=== PATIENT | female | born 1940 | race Caucasian/White ===

== ENCOUNTER 2017-12-12 11:14 | Emergency (ER) | payer BC, MEDICARE ==
[~2017-12-12] VITALS: Ht 160 cm; Wt 90.0 kg
[~2017-12-12 11:14] MED LIST: ASCO500C PO; CALCTAB80 PO; CENTTAB9 PO; COEN100T PO; FISH1000 PO; GARL350T OR; ROSU40 PO; SYNT25TA PO; VITA500015 OR; ZETI10TA5 PO
[2017-12-12 11:20] VITALS: BP 166/72; PULSE 99; RESP 18; TEMP 98; O2SAT 99
--- NOTE | 2017-12-12 11:44 | PD ---
HPI Chief Complaint: Fever Time Seen by Provider: 11:41 Travel History International Travel<30 days: No Contact w/Intl Traveler<30days: No Traveled to known affect area: No History of Present Illness HPI Patient presents with marine equipment sales engineer. Patient with severe dementia. Sill Worker reports a fever this morning with a single episode of vomiting. T-max of 102. On arrival patient is afebrile. Sill Worker reports no Motrin or Tylenol were given. Sill Worker has no past medical history or medications for this patient. Onset upon awakening. Per the marine equipment sales engineer patient is at baseline. Family contacted to relay past medical history of atrial fibrillation hyperlipidemia hypertension hypothyroid and postmenopausal. PFSH Past Medical History Atrial Fibrillation: Yes (INTERMITTENT) Cardiovascular Problems: Yes High Cholesterol: Yes Diminished Hearing: No Hypertension: Yes Neurologic: No Respiratory: No Thyroid Disease: Yes ?: Not Menopausal: Yes Past Surgical History Appendectomy: Yes Gynecologic Surgery: Yes Hysterectomy: Yes Tonsillectomy: Yes Social History Alcohol Use: Yes (OCC) Tobacco Use: No Substance Use: No Allergies-Medications (Allergen,Severity, Reaction): Coded Allergies: penicillin G (Unverified Allergy, Severe, 12/12/17) Reported Meds & Prescriptions Reported Meds & Active Scripts Active Cipro (Ciprofloxacin HCl) 500 Mg Tab 500 Mg PO BID 5 Days Reported Aspirin 81 Mg Chew 81 Mg CHEW DAILY Trospium ER 60 Mg Cap 60 Mg PO DAILY Ezetimibe 10 Mg Tab 10 Mg PO DAILY Crestor (Rosuvastatin Calcium) 40 Mg Tab 40 Mg PO DAILY Citalopram (Citalopram Hydrobromide) 20 Mg Tab 20 Mg PO DAILY Synthroid (Levothyroxine Sodium) 50 Mcg Tab 50 Mcg PO DAILY Review of Systems ROS Limitations: Poor Historian, Other: (Severe dementia) General / Constitutional: Positive: Fever Gastrointestinal: Positive: Vomiting Physical Exam Narrative GENERAL: Well-nourished, well-developed patient. Severely demented SKIN: Focused skin assessment warm/dry. HEAD: Normocephalic. EYES: No scleral icterus. No injection or drainage. NECK: Supple, trachea midline. No JVD or lymphadenopathy. CARDIOVASCULAR: Regular rate and rhythm without murmurs, gallops, or rubs. RESPIRATORY: Breath sounds equal bilaterally. No accessory muscle use. GASTROINTESTINAL: Abdomen soft, questionable tender weakness of the lower abdomen, nondistended. MUSCULOSKELETAL: No cyanosis, or edema. BACK: Nontender without obvious deformity. No CVA tenderness. Data Data Last Documented VS Vital Signs Date Time Temp Pulse Resp B/P (MAP) Pulse Ox O2 Delivery O2 Flow Rate FiO2 12/12/17 14:34 98.2 80 16 119/68 (85) 96 Room Air Orders Orders Chest, Single Ap (12/12/17 ) Urinalysis - C+S If Indicated (12/12/17 11:41) Complete Blood Count With Diff (12/12/17 11:41) Comprehensive Metabolic Panel (12/12/17 11:41) Sodium Chlorid 0.9% 500 Ml Inj (Ns 500 M (12/12/17 12:15) Ondansetron Inj (Zofran Inj) (12/12/17 12:15) Ondansetron Liq (Zofran Liq) (12/12/17 12:45) Ibuprofen Liq (Motrin Liq) (12/12/17 12:45) Urine Culture (12/12/17 12:10) Ciprofloxacin 400 Mg Premix (Cipro 400 M (12/12/17 13:30) Labs Laboratory Tests Test 12/12/17 11:50 12/12/17 12:10 White Blood Count 9.4 TH/MM3 Red Blood Count 4.73 MIL/MM3 Hemoglobin 13.9 GM/DL Hematocrit 42.5 % Mean Corpuscular Volume 89.8 FL Mean Corpuscular Hemoglobin 29.5 PG Mean Corpuscular Hemoglobin Concent 32.8 % Red Cell Distribution Width 13.2 % Platelet Count 244 TH/MM3 Mean Platelet Volume 11.3 FL Neutrophils (%) (Auto) 81.5 % Lymphocytes (%) (Auto) 12.4 % Monocytes (%) (Auto) 4.0 % Eosinophils (%) (Auto) 0.0 % Basophils (%) (Auto) 2.1 % Neutrophils # (Auto) 7.6 TH/MM3 Lymphocytes # (Auto) 1.2 TH/MM3 Monocytes # (Auto) 0.4 TH/MM3 Eosinophils # (Auto) 0.0 TH/MM3 Basophils # (Auto) 0.2 TH/MM3 CBC Comment DIFF FINAL Differential Comment Blood Urea Nitrogen 18 MG/DL Creatinine 1.20 MG/DL Random Glucose 167 MG/DL Total Protein 7.4 GM/DL Albumin 3.4 GM/DL Calcium Level 9.0 MG/DL Alkaline Phosphatase 68 U/L Aspartate Amino Transf (AST/SGOT) 29 U/L Alanine Aminotransferase (ALT/SGPT) 26 U/L Total Bilirubin 1.0 MG/DL Sodium Level 139 MEQ/L Potassium Level 4.3 MEQ/L Chloride Level 107 MEQ/L Carbon Dioxide Level 22.6 MEQ/L Anion Gap 9 MEQ/L Estimat Glomerular Filtration Rate 44 ML/MIN Urine Collection Type CATH Urine Color YELLOW Urine Turbidity CLEAR Urine pH 5.5 Urine Specific [place] GREATER/EQUAL 1.030 Urine Protein 30 mg/dL Urine Glucose (UA) NEG mg/dL Urine Ketones 15 mg/dL Urine Occult Blood SMALL Urine Nitrite POS Urine Bilirubin NEG Urine Urobilinogen 0.2 MG/DL Urine Leukocyte Esterase MOD Urine WBC 50-99 /hpf Urine WBC Clumps MANY Urine Squamous Epithelial Cells 0-3 /hpf Urine Bacteria MANY /hpf Urine Hyaline Casts 50-100 /lpf Microscopic Urinalysis Comment CULTURE INDICATED MDM Medical Decision Making Medical Screen Exam Complete: Yes Emergency Medical Condition: Yes Differential Diagnosis Fever, UTI, pneumonia, sepsis, electrolyte abnormality, nausea vomiting Narrative Course Last 72 hours Impressions Chest X-Ray 12/12/17 0000 Signed Impressions: Service Date/Time: Tuesday, December 12, 2017 11:48 - CONCLUSION: Underinflation of atelectasis at the bases. Otherwise, no acute finding is identified. Joe Carlson MD Assessment plan discussed with marine equipment sales engineer at bedside. Patient resting comfortably without any episodes of vomiting. Diagnosis Primary Impression: UTI (urinary tract infection) Qualified Codes: N39.0 - Urinary tract infection, site not specified; R31.9 - Hematuria, unspecified Additional Impressions: Vomiting Qualified Codes: R11.10 - Vomiting, unspecified Fever Qualified Codes: R50.81 - Fever presenting with conditions classified elsewhere Patient Instructions: General Instructions Additional Instructions: Motrin or Tylenol for fever. Zofran as needed for vomiting. Antibiotic for UTI. Encourage fluids. Consider cranberry supplement. Okay to give all regular meds when she gets home. Follow-up with PCP. Return to the emergency room with any onset of new symptoms. Med/Other Pt SpecificInfo: Prescription(s) given Scripts Ondansetron (Zofran) 4 Mg Tab 4 MG PO Q8HR Y for NAUSEA OR VOMITING, #10 TAB 0 Refills Prov: Rod Baptiste MD 12/12/17 Ciprofloxacin (Cipro) 500 Mg Tab 500 MG PO BID for Infection for 5 Days, #10 TAB 0 Refills Prov: Rod Baptiste MD 12/12/17 Disposition: 01 DISCHARGE HOME Condition: Good Rod Baptiste MD December 12, 2017 11:44
[2017-12-12] MEDS ORDERED: LEVO.05 PO (11:53)
[2017-12-12] MEDS ORDERED: TROS60CA2 PO (11:53)
[2017-12-12] MEDS ORDERED: EZET1TAB8 PO (11:53)
[2017-12-12] MEDS ORDERED: ROSU40 PO (11:53)
[2017-12-12] MEDS ORDERED: CITA20TA4 PO (11:53)
[2017-12-12] MEDS ORDERED: ASPI-516 CHEW (11:53)
[2017-12-12 11:55] VITALS: TEMP 98.9
--- NOTE | 2017-12-12 12:12 | RADRPT ---
EXAM DATE/TIME: 12/12/2017 11:48 [facility] COMPARISON: No previous studies available for comparison. INDICATIONS : Fever and vomiting today MEDICAL HISTORY : None. SURGICAL HISTORY : None. ENCOUNTER: Initial ACUITY: 1 day PAIN SCORE: Non-responsive. LOCATION: Bilateral chest FINDINGS: Portable AP view of the chest demonstrates a normal-sized cardiac silhouette. Lungs are underinflated and EKG lines overlie the patient. There is mild atelectasis at the lung bases. No pneumothorax or c onsolidation is seen. No definite effusion is visualized. Bones demonstrate no acute abnormality. CONCLUSION: Underinflation of atelectasis at the bases. Otherwise, no acute finding is identified. Joe Carlson MD on December 12, 2017 at 12:09 Board Certified Radiologist. This report was verified electronically.
[2017-12-12] MEDS ORDERED: SODIUM CHLORID 0.9% 500 ML INJ 500 ML IV ONE (12:15)
[2017-12-12] MEDS ORDERED: ONDANSETRON HCL 4 MG/2 ML VIAL IV PUSH ONE (12:15)
[2017-12-12 12:23] LABS: AUTOMATED NEUTROPHIL # 7.6 TH/MM3 (1.8-7.7); BASOPHIL # 0.2 TH/MM3 (0-0.2); BASOPHIL % 2.1 % (0.0-2.0); HEMATOCRIT 42.5 % (35.0-46.0); HEMOGLOBIN 13.9 GM/DL (11.6-15.3); LYMPH % 12.4 % (9.0-44.0); LYMPHOCYTE # 1.2 TH/MM3 (1.0-4.8); MEAN CELL VOLUME 89.8 FL (80.0-100.0); MEAN CORPUSCULAR HEMOGLOBIN 29.5 PG (27.0-34.0); MEAN CORPUSCULAR HGB CONC 32.8 % (32.0-36.0); MEAN PLATELET VOLUME 11.3 FL (7.0-11.0); MONOCYTE # 0.4 TH/MM3 (0-0.9); NEUT % 81.5 % (16.0-70.0); PLATELET COUNT 244 TH/MM3 (150-450); RED BLOOD COUNT 4.73 MIL/MM3 (4.00-5.30); RED CELL DISTRIBUTION WIDTH 13.2 % (11.6-17.2); WHITE BLOOD COUNT 9.4 TH/MM3 (4.0-11.0)
[2017-12-12 12:24] LABS: BLOOD, URINE SMALL (NEG); GLUCOSE,URINE NEG (NEG); KETONE, URINE 15 mg/dL (NEG); NITRITE,URINE POS (NEG); PH, URINE 5.5 (5.0-8.5); URINE COLOR YELLOW (YELLW/STRAW); URINE LEUKOCYTE ESTERASE MOD (NEG)
[2017-12-12 12:25] LABS: CHLORIDE 107 MEQ/L (98-107); SODIUM (NA) 139 MEQ/L (136-145)
[2017-12-12 12:30] LABS: ALBUMIN 3.4 GM/DL (3.4-5.0); BICARBONATE 22.6 MEQ/L (21.0-32.0); BLOOD UREA NITROGEN 18 MG/DL (7-18); GLUCOSE,RANDOM 167 MG/DL (74-106)
[2017-12-12 12:33] LABS: ALT (GPT) 26 U/L (10-53); AST (GOT) 29 U/L (15-37); GLOMERULAR FILTRATION RATE 44 ML/MIN (>89)
[2017-12-12 12:34] LABS: BILIRUBIN, URINE NEG (NEG)
[2017-12-12 12:34] LABS: TOTAL PROTEIN 7.4 GM/DL (6.4-8.2)
[2017-12-12 12:36] LABS: HYALINE CAST, URINE 50-100 /lpf (RARE); WHITE BLOOD CELL CLUMPS MANY
[2017-12-12 12:36] LABS: ALKALINE PHOSPHATASE 68 U/L (45-117)
[2017-12-12 12:37] LABS: BACTERIA, URINE MANY /hpf; SQUAMOUS EPITHELIAL CELL URINE 0-3 /hpf (0-5)
[2017-12-12] MEDS ORDERED: ONDANSETRON HCL 4 MG/5 ML UDC PO ONE (12:45)
[2017-12-12] MEDS ORDERED: IBUPROFEN SUSP 100 MG/5 ML UDC PO ONE (12:45)
[2017-12-12 12:48] VITALS: BP 129/55; PULSE 83; RESP 20; O2SAT 94
[2017-12-12] MEDS ORDERED: CIPR-9 PO (13:27)
[2017-12-12] MEDS ORDERED: CIPROFLOXACIN 400 MG PREMIX 200 ML IV ONE (13:30)
[2017-12-12 14:34] VITALS: BP 119/68; PULSE 80; RESP 16; TEMP 98.2; O2SAT 96
[2017-12-12] MEDS ORDERED: ZOFR4TAB PO (14:45)
== END 2017-12-12 15:19 | disposition home or self-care (01) ==
LOC: PHED 11:14
DX: N39.0 Urinary tract infection, site not specified (principal); B96.20 Unspecified Escherichia coli [E. coli] as the cause of diseases classified elsewhere; R11.10 Vomiting, unspecified; E03.9 Hypothyroidism, unspecified; F03.90 Unspecified dementia, unspecified severity, without behavioral disturbance, psychotic disturbance, mood disturbance, and anxiety; I10 Essential (primary) hypertension; I48.91 Unspecified atrial fibrillation; E78.5 Hyperlipidemia, unspecified
CPT/HCPCS: 71045; 80053; 81001; 85025; 87077; 87086; 87186; 96361; 96365; 96375; 99284; J0744; J2405; J7040